=== PATIENT | female | born 1945 | race Caucasian/White ===

== ENCOUNTER 2017-11-28 11:13 | Inpatient (IN) | payer MEDICARE, OTHER ==
[~2017-11-28] VITALS: Ht 152.4 cm; Wt 71.0 kg
[2017-11-28] MEDS ORDERED: SODIUM CHLORIDE 0.9% 1000ML 1,000 ML IV ONE ×3 (11:57→15:19)
[2017-11-28 12:19] LABS: BASOPHILS % (AUTO) 0.2 % (0.0-5.0); EOSINOPHILS % (AUTO) 0.2 % (0.0-8.0); HEMATOCRIT 31.4 % (36-48); MEAN CORPUSCULAR HEMOGLOBIN 31.6 pg (27.0-33.0); MEAN CORPUSCULAR HGB CONC 33.8 g/dL (32.0-36.0); MEAN CORPUSCULAR VOLUME 93.5 fL (79-99); NEUTROPHILS % (AUTO) 91.6 % (40.0-77.0); PLATELET COUNT (AUTO) 91 K/uL (130-400); RED BLOOD CELL COUNT(AUTO) 3.36 MIL/uL (4.00-5.50); RED CELL DISTRIBUTION WIDTH 14.3 % (11.0-15.5); WHITE BLOOD COUNT (AUTO) 27.2 K/uL (4.8-10.8)
[2017-11-28 12:30] LABS: INR 0.97 (0.85-1.15); PARTIAL THROMBOPLASTIN TIME 27.8 SEC (26.3-35.5); PROTHROMBIN TIME 10.2 SEC (9.6-11.6)
[2017-11-28 12:34] LABS: ALBUMIN 1.9 g/dL (3.5-5.0); BILIRUBIN,TOTAL 0.8 mg/dL (0.2-1.0); CREATININE 3.8 mg/dL (0.5-1.5); POTASSIUM 3.9 mmol/L (3.5-5.1); TOTAL PROTEIN, SERUM 6.2 g/dL (6.0-8.3)
[2017-11-28 13:22] LABS: APPEARANCE,URINE CLOUDY (CLEAR); BILIRUBIN,URINE NEGATIVE (NEGATIVE); COLOR,URINE YELLOW (YELLOW); GLUCOSE, URINE (UA) NEGATIVE (NEGATIVE); KETONES,URINE NEGATIVE (NEGATIVE); LEUKOCYTE ESTERASE ,URINE LARGE (NEGATIVE); NITRATE,URINE NEGATIVE (NEGATIVE); OCCULT BLOOD,URINE LARGE (NEGATIVE); PROTEIN,URINE 100 (NEGATIVE); UROBILINOGEN,URINE 0.2 mg/dL (0.2-1.0)
[2017-11-28] MEDS ORDERED: CEFTRIAXONE SODIUM 1 GM ONE (13:28)
[2017-11-28] MEDS ORDERED: SODIUM CHLORIDE 0.9% 50 ML IV ONE (13:28)
[2017-11-28 13:39] LABS: SQUAMOUS EPITHELIAL CELL,UR Rare /LPF (0-2)
[2017-11-28 13:40] LABS: BACTERIA,URINE Moderate /HPF (None Seen); RBC,URINE 51-100 /HPF (0-1); WBC,URINE TNTC /HPF (0-1)
[2017-11-28] MEDS: SODIUM CHLORIDE 0.9% 1000ML 1,000 ML IV SCH (17:19)
[2017-11-28] MEDS ORDERED: ONDANSETRON HCL 4 MG/2 ML VIAL IV PRN (17:30)
[2017-11-28] MEDS ORDERED: MORPHINE SULFATE 2 MG/ML 1ML SYG IV PRN (17:30)
[2017-11-28] MEDS ORDERED: RENAL DOSE IV PRN (17:30)
[2017-11-28] MEDS ORDERED: ACETAMINOPHEN 325 MG TAB PO PRN (17:30)
[2017-11-28] MEDS ORDERED: PRED5TAB PO (18:48)
[2017-11-28] MEDS ORDERED: VITA400C19 PO (18:48)
[2017-11-28] MEDS ORDERED: LOSA25TA21 PO (18:48)
[2017-11-28] MEDS ORDERED: SULI200T4 PO (18:48)
[2017-11-28] MEDS ORDERED: ONDA4TAB9 PO (18:48)
[2017-11-28] MEDS ORDERED: METO25TA6 PO (18:48)
[2017-11-28] MEDS ORDERED: ASCO500T9 PO (18:48)
[2017-11-28] MEDS ORDERED: FOLI1TAB15 PO (18:48)
[2017-11-28] MEDS ORDERED: METH25VI11 IJ (18:48)
[2017-11-28] MEDS ORDERED: MULT-1258 PO (18:48)
[2017-11-28] MEDS ORDERED: ETAN50DI2 SQ (18:48)
[2017-11-28] MEDS ORDERED: CALC600T12 PO (18:48)
[2017-11-28] MEDS ORDERED: ASPI-1197 PO (18:48)
[2017-11-28] MEDS ORDERED: CHOL200013 PO (18:48)
[2017-11-28 20:00] VITALS: BP 112/52
[2017-11-28] MEDS ORDERED: NOREPINEPHRINE 4MG/NS 250ML 250 ML IV SCH (21:15)
[2017-11-28] MEDS: LEVOFLOXACIN 500 MG/D5W 100 ML 100 ML IV SCH (21:30)
[2017-11-29] VITALS: BP 96/51
[2017-11-29 04:00] VITALS: BP 104/51
[2017-11-29 04:30] LABS: HEMATOCRIT 25.9 % (36-48); MEAN CORPUSCULAR HEMOGLOBIN 32.4 pg (27.0-33.0); MEAN CORPUSCULAR HGB CONC 34.4 g/dL (32.0-36.0); MEAN CORPUSCULAR VOLUME 94.1 fL (79-99); PLATELET COUNT (AUTO) 129 K/uL (130-400); RED BLOOD CELL COUNT(AUTO) 2.76 MIL/uL (4.00-5.50); RED CELL DISTRIBUTION WIDTH 14.4 % (11.0-15.5); WHITE BLOOD COUNT (AUTO) 24.3 K/uL (4.8-10.8)
[2017-11-29 04:44] LABS: CREATININE 2.8 mg/dL (0.5-1.5); MAGNESIUM 1.1 mg/dL (1.80-2.40)
[2017-11-29 04:45] LABS: POTASSIUM 2.7 mmol/L (3.5-5.1)
[2017-11-29] MEDS: SODIUM CHLORIDE 0.9% 1000ML 1,000 ML IV SCH ×2 (05:43→10:13)
[2017-11-29] MEDS: POTASSIUM CHLORIDE 20 MEQ ERTAB PO PRN ×4 (06:27→14:14)
[2017-11-29] MEDS: POTASSIUM CHLORIDE 20MEQ/100ML 100 ML IV PRN ×2 (06:27→12:39)
[2017-11-29] MEDS: LIDOCAINE HCL-MPF 1% 2ML VIAL IVP PRN ×2 (06:28→12:40)
[2017-11-29] MEDS ORDERED: POTASSIUM CHLORIDE 10% ELIXIR 20 MEQ/15 ML UDCUP PO PRN (06:30)
[2017-11-29 08:00] VITALS: BP 108/46
[2017-11-29] MEDS: PANTOPRAZOLE SODIUM 40 MG TABLET.DR PO SCH (10:13)
[2017-11-29] MEDS: PREDNISONE 5 MG TABLET PO SCH (10:13)
[2017-11-29] MEDS: MAGNESIUM 2GM PREMIX 50ML 50 ML IV SCH (10:16)
[2017-11-29 12:00] VITALS: BP 98/41
[2017-11-29] MEDS ORDERED: CEFTRIAXONE SODIUM 1 GM IVP SCH (14:00)
[2017-11-29 15:46] VITALS: BP 94/53
[2017-11-29 20:00] VITALS: BP 181/84
[2017-11-30] VITALS (7 sets, daily range): BP systolic 105–124; BP diastolic 51–61
[2017-11-30] MEDS: ACETAMINOPHEN-CODEINE 300/30MG TAB PO PRN (01:00)
[2017-11-30] MEDS: SODIUM CHLORIDE 0.9% 1000ML 1,000 ML IV SCH ×3 (03:45→17:00)
[2017-11-30 04:54] LABS: HEMATOCRIT 27.9 % (36-48); MEAN CORPUSCULAR HEMOGLOBIN 32.9 pg (27.0-33.0); MEAN CORPUSCULAR HGB CONC 34.8 g/dL (32.0-36.0); MEAN CORPUSCULAR VOLUME 94.4 fL (79-99); PLATELET COUNT (AUTO) 204 K/uL (130-400); RED BLOOD CELL COUNT(AUTO) 2.95 MIL/uL (4.00-5.50); RED CELL DISTRIBUTION WIDTH 14.7 % (11.0-15.5); WHITE BLOOD COUNT (AUTO) 24.1 K/uL (4.8-10.8)
[2017-11-30 05:20] LABS: CREATININE 2.1 mg/dL (0.5-1.5); MAGNESIUM 1.8 mg/dL (1.80-2.40)
[2017-11-30] MEDS: POTASSIUM CHLORIDE 20MEQ/100ML 100 ML IV PRN (08:10)
[2017-11-30] MEDS: **HM** VIT D3 2000 UNITS PO SCH ×2 (09:00→10:16)
[2017-11-30] MEDS: FOLIC ACID 1 MG TABLET PO SCH ×2 (09:19→10:12)
[2017-11-30] MEDS: PANTOPRAZOLE SODIUM 40 MG TABLET.DR PO SCH ×2 (09:19→10:13)
[2017-11-30] MEDS: CALCIUM CARBONATE 500 MG TABLET PO SCH ×2 (09:19→10:12)
[2017-11-30] MEDS: ASPIRIN 81MG TAB.CHEW PO SCH ×2 (09:19→10:13)
[2017-11-30] MEDS: VITAMIN E 400 UNIT CAPSULE PO SCH ×2 (09:19→10:12)
[2017-11-30] MEDS: ASCORBIC ACID 500 MG TAB PO SCH ×2 (09:19→10:13)
[2017-11-30] MEDS: PREDNISONE 5 MG TABLET PO SCH ×2 (09:19→10:13)
[2017-11-30] MEDS ORDERED: LACTULOSE 20 GM/30 ML UDCUP ONE (16:32)
[2017-11-30] MEDS: LEVOFLOXACIN 500 MG/D5W 100 ML 100 ML IV SCH (22:23)
[2017-12-01] MEDS: ACETAMINOPHEN-CODEINE 300/30MG TAB PO PRN (02:49)
[2017-12-01] MEDS: SODIUM CHLORIDE 0.9% 1000ML 1,000 ML IV SCH ×2 (03:55→15:19)
[2017-12-01 04:20] LABS: HEMATOCRIT 27.9 % (36-48); MEAN CORPUSCULAR HEMOGLOBIN 31.9 pg (27.0-33.0); MEAN CORPUSCULAR HGB CONC 33.8 g/dL (32.0-36.0); MEAN CORPUSCULAR VOLUME 94.3 fL (79-99); PLATELET COUNT (AUTO) 271 K/uL (130-400); RED BLOOD CELL COUNT(AUTO) 2.96 MIL/uL (4.00-5.50); RED CELL DISTRIBUTION WIDTH 14.9 % (11.0-15.5); WHITE BLOOD COUNT (AUTO) 20.9 K/uL (4.8-10.8)
[2017-12-01 04:32] LABS: CREATININE 1.6 mg/dL (0.5-1.5); POTASSIUM 4.3 mmol/L (3.5-5.1)
[2017-12-01 08:11] VITALS: BP 116/76
[2017-12-01] MEDS: FOLIC ACID 1 MG TABLET PO SCH (09:27)
[2017-12-01] MEDS: ASPIRIN 81MG TAB.CHEW PO SCH (09:27)
[2017-12-01] MEDS: ASCORBIC ACID 500 MG TAB PO SCH (09:27)
[2017-12-01] MEDS: VITAMIN E 400 UNIT CAPSULE PO SCH (09:27)
[2017-12-01] MEDS: CALCIUM CARBONATE 500 MG TABLET PO SCH (09:27)
[2017-12-01] MEDS: PREDNISONE 5 MG TABLET PO SCH (09:28)
[2017-12-01] MEDS: **HM** VIT D3 2000 UNITS PO SCH (09:28)
[2017-12-01] MEDS: PANTOPRAZOLE SODIUM 40 MG TABLET.DR PO SCH (09:28)
[2017-12-01 12:13] VITALS: BP 117/64
[2017-12-01 15:37] VITALS: BP 125/65
[2017-12-01 20:00] VITALS: BP 129/57
[2017-12-01 23:59] VITALS: BP 126/89
[2017-12-02] MEDS: SODIUM CHLORIDE 0.9% 1000ML 1,000 ML IV SCH ×3 (01:19→23:46)
[2017-12-02 04:00] VITALS: BP 120/62
[2017-12-02 04:35] LABS: HEMATOCRIT 27.1 % (36-48); MEAN CORPUSCULAR HGB CONC 33.9 g/dL (32.0-36.0); MEAN CORPUSCULAR VOLUME 94.4 fL (79-99); PLATELET COUNT (AUTO) 313 K/uL (130-400); RED BLOOD CELL COUNT(AUTO) 2.87 MIL/uL (4.00-5.50); RED CELL DISTRIBUTION WIDTH 14.6 % (11.0-15.5); WHITE BLOOD COUNT (AUTO) 21.5 K/uL (4.8-10.8)
[2017-12-02 04:39] LABS: CREATININE 1.4 mg/dL (0.5-1.5); POTASSIUM 4.5 mmol/L (3.5-5.1)
[2017-12-02 08:00] VITALS: BP 128/58
[2017-12-02 11:41] VITALS: BP 100/50
[2017-12-02 15:38] VITALS: BP 121/85
[2017-12-02 19:16] VITALS: BP 140/80
[2017-12-02] MEDS: LEVOFLOXACIN 500 MG/D5W 100 ML 100 ML IV SCH (19:41)
[2017-12-02 23:00] VITALS: BP 111/58
[2017-12-03] MEDS: ACETAMINOPHEN-CODEINE 300/30MG TAB PO PRN (02:35)
[2017-12-03 03:39] VITALS: BP 129/60
[2017-12-03] MEDS: SODIUM CHLORIDE 0.9% 1000ML 1,000 ML IV SCH ×2 (06:03→23:38)
[2017-12-03 07:01] LABS: HEMATOCRIT 22.7 % (36-48); MEAN CORPUSCULAR HEMOGLOBIN 32.5 pg (27.0-33.0); MEAN CORPUSCULAR HGB CONC 34.5 g/dL (32.0-36.0); MEAN CORPUSCULAR VOLUME 94.2 fL (79-99); PLATELET COUNT (AUTO) 290 K/uL (130-400); RED BLOOD CELL COUNT(AUTO) 2.41 MIL/uL (4.00-5.50); RED CELL DISTRIBUTION WIDTH 14.6 % (11.0-15.5); WHITE BLOOD COUNT (AUTO) 19.7 K/uL (4.8-10.8)
[2017-12-03 07:09] LABS: CREATININE 1.2 mg/dL (0.5-1.5)
[2017-12-03 08:00] VITALS: BP 108/58
[2017-12-03] MEDS: **HM** VIT D3 2000 UNITS PO SCH (09:00)
[2017-12-03] MEDS: CALCIUM CARBONATE 500 MG TABLET PO SCH (09:06)
[2017-12-03] MEDS: PANTOPRAZOLE SODIUM 40 MG TABLET.DR PO SCH (09:06)
[2017-12-03] MEDS: PREDNISONE 5 MG TABLET PO SCH (09:06)
[2017-12-03] MEDS: FOLIC ACID 1 MG TABLET PO SCH (09:06)
[2017-12-03] MEDS: VITAMIN E 400 UNIT CAPSULE PO SCH (09:06)
[2017-12-03] MEDS: ASCORBIC ACID 500 MG TAB PO SCH (09:06)
[2017-12-03] MEDS: ASPIRIN 81MG TAB.CHEW PO SCH (09:06)
[2017-12-03 12:02] VITALS: BP 136/69
[2017-12-03] MEDS ORDERED: CEFTRIAXONE 1GM/D5W 50ML 50 ML IV SCH (12:45)
[2017-12-03] MEDS: CEFTRIAXONE SODIUM 1 GM IVP SCH (13:29)
[2017-12-03 15:58] VITALS: BP 113/64
[2017-12-03 20:00] VITALS: BP 110/57
[2017-12-03 23:55] VITALS: BP 118/59
[2017-12-04] MEDS: SODIUM CHLORIDE 0.9% 1000ML 1,000 ML IV SCH ×2 (03:19→15:10)
[2017-12-04 04:00] VITALS: BP 120/87
[2017-12-04 06:40] LABS: HEMATOCRIT 27.1 % (36-48); MEAN CORPUSCULAR HEMOGLOBIN 33.2 pg (27.0-33.0); MEAN CORPUSCULAR HGB CONC 34.6 g/dL (32.0-36.0); MEAN CORPUSCULAR VOLUME 95.9 fL (79-99); PLATELET COUNT (AUTO) 378 K/uL (130-400); RED BLOOD CELL COUNT(AUTO) 2.83 MIL/uL (4.00-5.50); RED CELL DISTRIBUTION WIDTH 14.8 % (11.0-15.5); WHITE BLOOD COUNT (AUTO) 23.1 K/uL (4.8-10.8)
[2017-12-04 06:47] LABS: CREATININE 1.2 mg/dL (0.5-1.5); POTASSIUM 4.1 mmol/L (3.5-5.1)
[2017-12-04 08:25] VITALS: BP 128/60
[2017-12-04] MEDS: **HM** VIT D3 2000 UNITS PO SCH (09:00)
[2017-12-04] MEDS: SULINDAC 200 MG PO SCH (09:00)
[2017-12-04] MEDS: VITAMIN E 400 UNIT CAPSULE PO SCH (09:29)
[2017-12-04] MEDS: PANTOPRAZOLE SODIUM 40 MG TABLET.DR PO SCH (09:30)
[2017-12-04] MEDS: ASCORBIC ACID 500 MG TAB PO SCH (09:30)
[2017-12-04] MEDS: FOLIC ACID 1 MG TABLET PO SCH (09:30)
[2017-12-04] MEDS: ASPIRIN 81MG TAB.CHEW PO SCH (09:30)
[2017-12-04] MEDS: PREDNISONE 5 MG TABLET PO SCH (09:30)
[2017-12-04] MEDS: CALCIUM CARBONATE 500 MG TABLET PO SCH (09:30)
[2017-12-04] MEDS: ACETAMINOPHEN-CODEINE 300/30MG TAB PO PRN ×2 (09:33→20:38)
[2017-12-04 12:00] VITALS: BP 116/47
[2017-12-04] MEDS ORDERED: METO-408 PO (14:50)
[2017-12-04] MEDS ORDERED: SULI200T4 PO (14:50)
[2017-12-04] MEDS: CEFTRIAXONE SODIUM 1 GM IVP SCH (15:09)
[2017-12-04] MEDS: LACTULOSE 20 GM/30 ML UDCUP PO PRN (17:00)
[2017-12-04 17:50] VITALS: BP 124/72
[2017-12-04 20:00] VITALS: BP 111/56
[2017-12-04 23:58] VITALS: BP 120/66
[2017-12-05 04:00] VITALS: BP 138/72
[2017-12-05 04:58] LABS: MEAN CORPUSCULAR HEMOGLOBIN 32.9 pg (27.0-33.0); MEAN CORPUSCULAR VOLUME 94.1 fL (79-99); PLATELET COUNT (AUTO) 328 K/uL (130-400); RED BLOOD CELL COUNT(AUTO) 2.17 MIL/uL (4.00-5.50); RED CELL DISTRIBUTION WIDTH 14.8 % (11.0-15.5)
[2017-12-05 05:01] LABS: HEMATOCRIT 20.4 % (36-48)
[2017-12-05 05:09] LABS: CREATININE 1.1 mg/dL (0.5-1.5); MAGNESIUM 1.2 mg/dL (1.80-2.40); POTASSIUM 3.9 mmol/L (3.5-5.1)
[2017-12-05 05:27] LABS: BAND NEUTROPHILS % (MANUAL) 1 % (0-2); LYMPHOCYTES % (MANUAL) 6 % (22-44); MAN.DIFF COMMENT-IMPRESSION MANUAL DIFFERENTIAL; MONOCYTES % (MANUAL) 5 % (2-9); PLATELET MORPHOLOGY COMMENT ADEQUATE; SEGMENTED NEUTROPHILS % 88 % (40-70)
[2017-12-05] MEDS: DRONABINOL 2.5 MG CAP PO SCH ×2 (06:42→16:30)
[2017-12-05 08:32] VITALS: BP 125/74
[2017-12-05] MEDS: **HM** VIT D3 2000 UNITS PO SCH (09:00)
[2017-12-05] MEDS: SULINDAC 200 MG PO SCH (09:00)
[2017-12-05] MEDS: FOLIC ACID 1 MG TABLET PO SCH (09:22)
[2017-12-05] MEDS: ASCORBIC ACID 500 MG TAB PO SCH (09:22)
[2017-12-05] MEDS: CALCIUM CARBONATE 500 MG TABLET PO SCH (09:22)
[2017-12-05] MEDS: VITAMIN E 400 UNIT CAPSULE PO SCH (09:22)
[2017-12-05] MEDS: ASPIRIN 81MG TAB.CHEW PO SCH (09:22)
[2017-12-05] MEDS: PANTOPRAZOLE SODIUM 40 MG TABLET.DR PO SCH (09:23)
[2017-12-05] MEDS: PREDNISONE 5 MG TABLET PO SCH (09:23)
[2017-12-05] MEDS ORDERED: FUROSEMIDE 10 MG/ML 2ML VIAL IV SCH ×2 (11:30)
[2017-12-05 11:56] VITALS: BP 110/68
[2017-12-05] MEDS: CEFTRIAXONE SODIUM 1 GM IVP SCH (14:11)
[2017-12-05 15:20] LABS: HEMATOCRIT 28.3 % (36-48)
[2017-12-05] MEDS: MAGNESIUM 2GM PREMIX 50ML 50 ML IV SCH (15:55)
[2017-12-05] MEDS: MAGNESIUM 4GM PREMIX 100ML 100 ML IV SCH (15:57)
[2017-12-05 17:44] VITALS: BP 116/79
[2017-12-05] MEDS ORDERED: HYDROCODONE/ACETAMINOPHEN 5/325 MG TAB PO PRN (17:45)
[2017-12-05 20:00] VITALS: BP 127/66
[2017-12-05] MEDS: LACTULOSE 20 GM/30 ML UDCUP PO PRN (20:22)
[2017-12-05 23:41] VITALS: BP 125/78
[2017-12-06 03:58] VITALS: BP 137/82
[2017-12-06 04:29] LABS: HEMATOCRIT 25.5 % (36-48); MEAN CORPUSCULAR HEMOGLOBIN 32.8 pg (27.0-33.0); MEAN CORPUSCULAR HGB CONC 35.2 g/dL (32.0-36.0); PLATELET COUNT (AUTO) 360 K/uL (130-400); RED BLOOD CELL COUNT(AUTO) 2.74 MIL/uL (4.00-5.50); RED CELL DISTRIBUTION WIDTH 14.8 % (11.0-15.5); WHITE BLOOD COUNT (AUTO) 10.8 K/uL (4.8-10.8)
[2017-12-06 04:51] LABS: CREATININE 1.2 mg/dL (0.5-1.5)
[2017-12-06 04:55] LABS: BAND NEUTROPHILS % (MANUAL) 15 % (0-2); EOSINOPHILS % (MANUAL) 1 % (1-6); LYMPHOCYTES % (MANUAL) 14 % (22-44); MONOCYTES % (MANUAL) 10 % (2-9); SEGMENTED NEUTROPHILS % 60 % (40-70)
[2017-12-06 04:56] LABS: MAN.DIFF COMMENT-IMPRESSION MANUAL DIFFERENTIAL; PLATELET MORPHOLOGY COMMENT ADEQUATE
[2017-12-06] MEDS: DRONABINOL 2.5 MG CAP PO SCH ×2 (06:32→15:46)
[2017-12-06 07:00] VITALS: BP 138/70
[2017-12-06] MEDS: FOLIC ACID 1 MG TABLET PO SCH (08:33)
[2017-12-06] MEDS: VITAMIN E 400 UNIT CAPSULE PO SCH (08:33)
[2017-12-06] MEDS: ASPIRIN 81MG TAB.CHEW PO SCH (08:33)
[2017-12-06] MEDS: CALCIUM CARBONATE 500 MG TABLET PO SCH (08:33)
[2017-12-06] MEDS: PREDNISONE 5 MG TABLET PO SCH (08:33)
[2017-12-06] MEDS: PANTOPRAZOLE SODIUM 40 MG TABLET.DR PO SCH (08:33)
[2017-12-06] MEDS: ASCORBIC ACID 500 MG TAB PO SCH (08:33)
[2017-12-06] MEDS: SULINDAC 200 MG PO SCH (08:34)
[2017-12-06] MEDS: **HM** VIT D3 2000 UNITS PO SCH (08:34)
[2017-12-06] MEDS: MAGNESIUM 4GM PREMIX 100ML 100 ML IV SCH (08:47)
[2017-12-06 11:59] VITALS: BP 131/78
[2017-12-06] MEDS: MAGNESIUM 2GM PREMIX 50ML 50 ML IV SCH (12:40)
[2017-12-06] MEDS: CEFTRIAXONE SODIUM 1 GM IVP SCH (12:44)
[2017-12-06] MEDS: FUROSEMIDE 10 MG/ML 2ML VIAL IV SCH (15:42)
[2017-12-06 16:00] VITALS: BP 118/63
[2017-12-06 19:27] VITALS: BP 116/61
[2017-12-06 23:33] VITALS: BP 133/73
[2017-12-07 04:26] LABS: HEMATOCRIT 25.8 % (36-48); MEAN CORPUSCULAR HGB CONC 34.7 g/dL (32.0-36.0); MEAN CORPUSCULAR VOLUME 92.1 fL (79-99); PLATELET COUNT (AUTO) 337 K/uL (130-400); RED CELL DISTRIBUTION WIDTH 14.8 % (11.0-15.5); WHITE BLOOD COUNT (AUTO) 11.1 K/uL (4.8-10.8)
[2017-12-07 04:35] LABS: CREATININE 1.2 mg/dL (0.5-1.5); POTASSIUM 3.8 mmol/L (3.5-5.1)
[2017-12-07 04:43] VITALS: BP 124/75
[2017-12-07 05:16] LABS: BAND NEUTROPHILS % (MANUAL) 5 % (0-2); EOSINOPHILS % (MANUAL) 1 % (1-6); LYMPHOCYTES % (MANUAL) 11 % (22-44); MAN.DIFF COMMENT-IMPRESSION MANUAL DIFFERENTIAL; MONOCYTES % (MANUAL) 7 % (2-9); SEGMENTED NEUTROPHILS % 76 % (40-70)
[2017-12-07 05:17] LABS: PLATELET MORPHOLOGY COMMENT ADEQUATE
[2017-12-07] MEDS ORDERED: FUROSEMIDE 10 MG/ML 2ML VIAL IV SCH (06:00)
[2017-12-07] MEDS: DRONABINOL 2.5 MG CAP PO SCH ×2 (06:40→15:40)
[2017-12-07 07:00] VITALS: BP 126/58
[2017-12-07] MEDS: CALCIUM CARBONATE 500 MG TABLET PO SCH (08:27)
[2017-12-07] MEDS: VITAMIN E 400 UNIT CAPSULE PO SCH (08:27)
[2017-12-07] MEDS: PREDNISONE 5 MG TABLET PO SCH (08:27)
[2017-12-07] MEDS: ASPIRIN 81MG TAB.CHEW PO SCH (08:27)
[2017-12-07] MEDS: PANTOPRAZOLE SODIUM 40 MG TABLET.DR PO SCH (08:27)
[2017-12-07] MEDS: **HM** VIT D3 2000 UNITS PO SCH (08:27)
[2017-12-07] MEDS: SULINDAC 200 MG PO SCH (08:27)
[2017-12-07] MEDS: FOLIC ACID 1 MG TABLET PO SCH (08:27)
[2017-12-07] MEDS: ASCORBIC ACID 500 MG TAB PO SCH (08:27)
[2017-12-07] MEDS: LACTULOSE 20 GM/30 ML UDCUP PO PRN (08:30)
[2017-12-07] MEDS ORDERED: DOCUSATE SODIUM 100 MG CAP PO PRN (08:45)
[2017-12-07 11:00] VITALS: BP 127/69
[2017-12-07 11:45] LABS: HEMATOCRIT 29.8 % (36-48); MEAN CORPUSCULAR HEMOGLOBIN 31.5 pg (27.0-33.0); MEAN CORPUSCULAR HGB CONC 34.5 g/dL (32.0-36.0); MEAN CORPUSCULAR VOLUME 91.4 fL (79-99); PLATELET COUNT (AUTO) 399 K/uL (130-400); RED BLOOD CELL COUNT(AUTO) 3.27 MIL/uL (4.00-5.50); RED CELL DISTRIBUTION WIDTH 14.6 % (11.0-15.5); WHITE BLOOD COUNT (AUTO) 15.3 K/uL (4.8-10.8)
[2017-12-07] MEDS: MAGNESIUM 2GM PREMIX 50ML 50 ML IV SCH (11:48)
[2017-12-07 12:24] LABS: EOSINOPHILS % (MANUAL) 1 % (1-6); LYMPHOCYTES % (MANUAL) 3 % (22-44); MAN.DIFF COMMENT-IMPRESSION MANUAL DIFFERENTIAL; MONOCYTES % (MANUAL) 4 % (2-9); SEGMENTED NEUTROPHILS % 92 % (40-70)
[2017-12-07 12:25] LABS: PLATELET MORPHOLOGY COMMENT ADEQUATE
[2017-12-07] MEDS: CEFTRIAXONE SODIUM 1 GM IVP SCH (13:24)
[2017-12-07] MEDS: FUROSEMIDE 10 MG/ML 2ML VIAL IV SCH (13:25)
== END 2017-12-07 17:15 | disposition home or self-care (01) | DRG 871 ==
LOC: EDH 11:13 → EDHIP 15:06 → 3DH 18:07
PROVIDERS: ADMIT Family Medicine; ATTEND Family Medicine
PROC: 30233N1 Transfusion of Nonautologous Red Blood Cells into Peripheral Vein, Percutaneous Approach (ICD-10-PCS; principal; 2017-12-05)
DX: A41.51 Sepsis due to Escherichia coli [E. coli] (principal); N17.0 Acute kidney failure with tubular necrosis; R65.21 Severe sepsis with septic shock; I95.9 Hypotension, unspecified; R17 Unspecified jaundice; D64.9 Anemia, unspecified; E83.42 Hypomagnesemia; M06.9 Rheumatoid arthritis, unspecified; N10 Acute pyelonephritis; E86.0 Dehydration; R60.0 Localized edema; M19.90 Unspecified osteoarthritis, unspecified site; Z96.659 Presence of unspecified artificial knee joint; K59.00 Constipation, unspecified; H26.9 Unspecified cataract; N18.9 Chronic kidney disease, unspecified; I12.9 Hypertensive chronic kidney disease with stage 1 through stage 4 chronic kidney disease, or unspecified chronic kidney disease; E87.6 Hypokalemia; Z91.041 Radiographic dye allergy status; Z79.899 Other long term (current) drug therapy
CPT/HCPCS: 36415; 36430; 71045; 74176; 80048; 80053; 81001; 82270; 83605; 83735; 84132; 85014; 85018; 85025; 85027; 85610; 85730; 86850; 86900; 86901; 86922; 87040; 87088; 87186; A4218; J0696; J1940; J1956; J3475; J3480; J3490; J7030; J7512; P9016